=== PATIENT | male | born 1940 | race Two or more races ===

== ENCOUNTER → 2024-08-24 | Outpatient (CLI) | payer MEDICARE, SELFPAY ==
--- NOTE | 2024-08-24 12:30 | XR_ITS ---
Examination: Bone scan whole body, radioisotope Date and time of exam: August 24, 2024 at 1230 hours INDICATIONS: Diagnosis malignant skin lesions 2 years ago, staging Technique: Study has been performed with intravenous administration of 25.5 mci 99M technetium MDP. Anterior, posterior whole body images are obtained. Images have been obtained including the lower extremities. Findings: Increased isotope accumulation right maxilla Increased isotope accumulation T6 and T11 as well as S1 on the right IMPRESSION: Positive bone scan but nonspecific Recommend plain films thoracic lumbar spine, facial series AP pelvis follow-up
== END | disposition home or self-care (01) ==
LOC: SNUC 07:47
PROVIDERS: PCP Family Medicine; Referring Provider Family Medicine; Visit Provider Family Medicine
DX: R93.7 Abnormal findings on diagnostic imaging of other parts of musculoskeletal system (principal); C90.00 Multiple myeloma not having achieved remission
CPT/HCPCS: 78306; A9503

== ENCOUNTER → 2024-08-26 | Outpatient (CLI) | payer MEDICARE, SELFPAY ==
--- NOTE | 2024-08-26 10:11 | XR_ITS ---
Examination: Lumbar spine, 5 views Technique: Lumbar spine AP, lateral, coned lateral lower lumbar spine, bilateral obliques 5 views Exam date and time: August 26, 2024 1059 hours INDICATIONS: Diagnosis malignant skin lesion 2 years ago, nuclear medicine bone scan August 24, 2024 positive T6 T11 increased isotope accumulation FINDINGS: Significant osteopenia Advanced facet arthropathy Prominent lumbar spondylosis Diffuse advanced lumbar degenerative disc disease with grade 1-2 anterolisthesis L5 on S1 IMPRESSION: No findings of osseous metastatic disease
--- NOTE | 2024-08-26 10:11 | XR_ITS ---
Examination: Facial bones 4 views TECHNIQUE: Bryan Astorga lateral submentovertex facial series 4 views Exam date and time: August 26, 2024 1059 hours INDICATIONS: Diagnosis malignant skin lesions 2 years ago, positive nuclear medicine bone scan right maxilla FINDINGS: No area of cortical bone destruction No facial fracture Mild mucosal thickening in the frontal air cells IMPRESSION: No area of cortical bone destruction CT maxillofacial follow-up, however, would be preferable in assessing for cortical bone destruction right maxilla
--- NOTE | 2024-08-26 10:11 | XR_ITS ---
Examination: Ribs, right, with PA chest, 4 views Technique: Chest PA, RIBS AP, RPO, LPO, 4 views Exam date and time: August 26, 2024 1059 hours INDICATIONS: Diagnosis malignant skin lesion 2 years ago, positive nuclear medicine bone scan August 24, 2024 ribs Findings: Normal heart size Extensive bilateral pulmonary fibrosis Moderate osteopenia No osteolytic lesions involving the visualized ribs IMPRESSION: Severe bilateral pulmonary fibrosis
--- NOTE | 2024-08-26 10:11 | XR_ITS ---
Examination: AP pelvis 2 views TECHNIQUE: AP pelvis hips in neutral position, AP pelvis hips abduction position Exam date and time: 03/26/2024 1059 hours INDICATIONS: Diagnosis malignant skin lesions 2 years ago, positive nuclear medicine bone scan S1 on the right August 24, 2024 FINDINGS: Advanced degenerative disc disease L5-S1 No osteolytic or osteoblastic lesion depicted Moderate narrowing hip joints IMPRESSION: No osteolytic or osteoblastic lesion depicted
== END | disposition home or self-care (01) ==
PROVIDERS: PCP Family Medicine; Referring Provider Family Medicine; Visit Provider Family Medicine
DX: R94.8 Abnormal results of function studies of other organs and systems (principal); J84.10 Pulmonary fibrosis, unspecified
CPT/HCPCS: 70150; 71101; 72110; 72170

== ENCOUNTER → 2024-10-13 | Outpatient (CLI) | payer MEDICARE, SELFPAY ==
--- NOTE | 2024-10-13 11:00 | XR_ITS ---
Examination: PA lateral chest 2 views TECHNIQUE: Upright PA lateral chest 2 views Exam date and time: October 13, 2024 1255 hours Comparison August 26, 2024 INDICATIONS: Coughing congestion chronic FINDINGS: Severe bilateral pulmonary fibrosis Normal heart size Prominent osteopenia IMPRESSION: Severe bilateral pulmonary fibrosis
== END | disposition home or self-care (01) ==
PROVIDERS: PCP Family Medicine; Referring Provider Family Medicine; Visit Provider Family Medicine
DX: J84.10 Pulmonary fibrosis, unspecified (principal)
CPT/HCPCS: 71046

== ENCOUNTER → 2024-10-20 | Outpatient (CLI) | payer MEDICARE, SELFPAY ==
[2024-10-20 11:47] LABS: Basophils % (Auto) 1 % (0-2.5); Eosinophils # (Auto) 0.2 Thou/mm3 (0.0-0.5); Eosinophils % (Auto) 3 % (0-10); Hematocrit 42.6 % (41.0-53.0); Hemoglobin 14.4 g/dL (13.5-16.0); Immature Granulocytes % (Auto) 1 % (0-0); Immature Granulocytes Auto 0.04 Thou/mm3 (0.00-0.00); Lymphocytes # (Auto) 0.9 Thou/mm3 (1.0-4.8); Lymphocytes % (Auto) 14 % (10-50); Mean Corpuscular HGB Conc 33.8 g/dl (31.0-37.0); Mean Corpuscular Hemoglobin 32.8 pg (25.0-35.0); Mean Corpuscular Volume 97 fL (80-100); Monocytes # (Auto) 0.4 Thou/mm3 (0.0-0.8); Monocytes % (Auto) 6 % (0-12); Neutrophils % (Auto) 77 % (37-80); Nucleated Red Blood Cell % 0 /100 WBC (0); Platelet Count 283 Thou/mm3 (140-440); RDW Standard Deviation 53.6 fL (35.1-43.9); Red Blood Count 4.39 Miln/mm3 (4.50-5.90); White Blood Count 6.5 Thou/mm3 (3.8-10.6)
[2024-10-20 12:03] LABS: Sed Rate (ESR) 15 mm/hr (0-20)
[2024-10-20 12:17] LABS: Alanine Aminotransferase 7 U/L (10-49); Albumin, Serum 4.5 gm/dL (3.4-4.8); Albumin/Globulin Ratio 1.3 (1.2-2.2); Alkaline Phosphatase 87 U/L (46-116); Anion Gap 8 (7-16); Aspartate Amino Transferase 19 U/L (0-34); BUN/Creatinine Ratio 17 Ratio (12-20); Bilirubin,Total 0.6 mg/dL (0.3-1.2); Blood Urea Nitrogen 20 mg/dL (9-23); C-Reactive Protein 0.4 mg/dL (0.0-0.9); Calcium 9.6 mg/dL (8.3-10.6); Calcium (Corrected) 9.6 mg/dL (8.5-10.1); Carbon Dioxide 28.9 mMol/L (20.0-31.0); Chloride 103 mMol/L (98-107); Creatinine (Component) 1.2 mg/dL (0.6-1.3); Globulin 3.4 gm/dL (2.3-3.5); Glucose 141 mg/dL (74-106); Osmolality,Calculated 284 (275-295); Potassium 4.7 mMol/L (3.4-5.1); Sodium 140 mMol/L (136-145); Total Protein 7.9 gm/dL (5.7-8.2); eGFR > 60 See Note
== END | disposition home or self-care (01) ==
LOC: COPL 10:19
PROVIDERS: PCP Family Medicine; Referring Provider Physician Assistant; Visit Provider Physician Assistant
DX: M05.79 Rheumatoid arthritis with rheumatoid factor of multiple sites without organ or systems involvement (principal)
CPT/HCPCS: 36415; 80053; 85025; 85652; 86140

== ENCOUNTER 2024-11-10 13:03 | Outpatient (RCR) | payer MEDICARE, SELFPAY | END 2024-12-05 23:59 | disposition home or self-care (01) | LOC: SCTC 13:03 | PROVIDERS: PCP Family Medicine; Referring Provider Family Medicine; Visit Provider Nurse Practitioner Family | DX: R63.4 Abnormal weight loss (principal); R53.1 Weakness | CPT/HCPCS: 99213; G0463 ==

== ENCOUNTER → 2024-11-22 | Outpatient (CLI) | payer MEDICARE, SELFPAY ==
[2024-11-22 09:49] LABS: Basophils % (Auto) 1 % (0-2.5); Eosinophils # (Auto) 0.2 Thou/mm3 (0.0-0.5); Eosinophils % (Auto) 4 % (0-10); Hematocrit 38.9 % (41.0-53.0); Hemoglobin 13.3 g/dL (13.5-16.0); Immature Granulocytes % (Auto) 0 % (0-0); Immature Granulocytes Auto 0.01 Thou/mm3 (0.00-0.00); Immature Reticulocyte Fraction 11.8 % (2.3-13.4); Lymphocytes % (Auto) 15 % (10-50); Mean Corpuscular HGB Conc 34.2 g/dl (31.0-37.0); Mean Corpuscular Hemoglobin 32.9 pg (25.0-35.0); Mean Corpuscular Volume 96 fL (80-100); Monocytes # (Auto) 0.5 Thou/mm3 (0.0-0.8); Monocytes % (Auto) 7 % (0-12); Neutrophils # (Auto) 4.7 Thou/mm3 (1.8-7.7); Neutrophils % (Auto) 73 % (37-80); Nucleated Red Blood Cell % 0 /100 WBC (0); Platelet Count 251 Thou/mm3 (140-440); RDW Standard Deviation 51.2 fL (35.1-43.9); Red Blood Count 4.04 Miln/mm3 (4.50-5.90); Reticulocyte % (Auto) 1.3 % (0.5-1.5); Reticulocyte Absolute Auto 52.1 Biln/L (25.0-75.0); White Blood Count 6.3 Thou/mm3 (3.8-10.6)
[2024-11-22 10:06] LABS: Folate > 24.00 ng/mL (>5.38); Vitamin B12 270 pg/mL (211-911)
[2024-11-22 10:22] LABS: Alanine Aminotransferase < 7 U/L (10-49); Albumin, Serum 4.3 gm/dL (3.4-4.8); Albumin/Globulin Ratio 1.3 (1.2-2.2); Alkaline Phosphatase 76 U/L (46-116); Anion Gap 9 (7-16); Aspartate Amino Transferase 16 U/L (0-34); BUN/Creatinine Ratio 17 Ratio (12-20); Bilirubin,Total 0.4 mg/dL (0.3-1.2); Blood Urea Nitrogen 20 mg/dL (9-23); Calcium 9.4 mg/dL (8.3-10.6); Calcium (Corrected) 9.4 mg/dL (8.5-10.1); Carbon Dioxide 30.2 mMol/L (20.0-31.0); Chloride 100 mMol/L (98-107); Creatinine (Component) 1.2 mg/dL (0.6-1.3); Globulin 3.3 gm/dL (2.3-3.5); Glucose 128 mg/dL (74-106); Osmolality,Calculated 282 (275-295); Potassium 4.7 mMol/L (3.4-5.1); Sodium 139 mMol/L (136-145); Total Protein 7.6 gm/dL (5.7-8.2); eGFR > 60 See Note
[2024-11-29 08:52] LABS: Albumin 3.9 g/dL (3.8-4.8); Alpha-1-Globulin 0.3 g/dL (0.2-0.3); Alpha-2-Globulin 0.9 g/dL (0.5-0.9); Beta-1-Globulin 0.5 g/dL (0.4-0.6); Beta-2-globulin 0.6 g/dL (0.2-0.5); Gamma Globulin 1.7 g/dL (0.8-1.7); Immunoglobulin A 487 mg/dL (70-320); Immunoglobulin G 1865 mg/dL (600-1540); Kappa Light Chain, Free 96.2 mg/L (3.3-19.4)
[2024-11-30 07:21] LABS: Beta 2 Microglobulin 3.25 mg/L (< OR = 2.51); Immunoglobulin M 110 mg/dL (50-300); Kappa/Lambda, Free Ratio 2.19 (0.26-1.65); Protein, total, serum 7.8 g/dL (6.1-8.1)
== END | disposition home or self-care (01) ==
LOC: SCTO 08:33
PROVIDERS: PCP Family Medicine; Referring Provider Nurse Practitioner Family; Visit Provider Nurse Practitioner Family
DX: D61.818 Other pancytopenia (principal); L98.9 Disorder of the skin and subcutaneous tissue, unspecified
CPT/HCPCS: 36415; 80053; 82232; 82607; 82728; 82746; 82784; 83521; 83540; 83550; 84155; 84165; 85025; 85046; 86334

== ENCOUNTER 2024-12-14 13:46 | Outpatient (RCR) | payer MEDICARE, SELFPAY | END 2025-01-04 23:59 | disposition home or self-care (01) | LOC: SCTC 13:46 | PROVIDERS: PCP Family Medicine; Referring Provider Nurse Practitioner Family; Visit Provider Nurse Practitioner Family | DX: E53.8 Deficiency of other specified B group vitamins (principal); R76.8 Other specified abnormal immunological findings in serum; R53.1 Weakness; R63.4 Abnormal weight loss; Z68.25 Body mass index [BMI] 25.0-25.9, adult | CPT/HCPCS: 99212; G0463 ==

== ENCOUNTER → 2024-12-15 | Outpatient (CLI) | payer MEDICARE, SELFPAY ==
[2024-12-15 11:46] LABS: Flow Cytometry* See Sep Rpt; Misc Send Out* See Sep Rpt
[2024-12-15 12:24] LABS: Basophils % (Auto) 1 % (0-2.5); Eosinophils # (Auto) 0.2 Thou/mm3 (0.0-0.5); Eosinophils % (Auto) 3 % (0-10); Hematocrit 36.7 % (41.0-53.0); Hemoglobin 12.6 g/dL (13.5-16.0); Immature Granulocytes % (Auto) 0 % (0-0); Immature Granulocytes Auto 0.01 Thou/mm3 (0.00-0.00); Lymphocytes # (Auto) 0.7 Thou/mm3 (1.0-4.8); Lymphocytes % (Auto) 13 % (10-50); Mean Corpuscular HGB Conc 34.3 g/dl (31.0-37.0); Mean Corpuscular Hemoglobin 33.3 pg (25.0-35.0); Mean Corpuscular Volume 97 fL (80-100); Monocytes # (Auto) 0.4 Thou/mm3 (0.0-0.8); Monocytes % (Auto) 7 % (0-12); Neutrophils # (Auto) 4.3 Thou/mm3 (1.8-7.7); Neutrophils % (Auto) 76 % (37-80); Nucleated Red Blood Cell % 0 /100 WBC (0); Platelet Count 272 Thou/mm3 (140-440); RDW Standard Deviation 51.7 fL (35.1-43.9); Red Blood Count 3.78 Miln/mm3 (4.50-5.90); White Blood Count 5.7 Thou/mm3 (3.8-10.6)
[2024-12-15 12:36] LABS: Ferritin 37 ng/mL (10.5-307.3); Iron 42 mcg/dL (65-175)
[2024-12-15 12:45] LABS: Alanine Aminotransferase < 7 U/L (10-49); Albumin/Globulin Ratio 1.2 (1.2-2.2); Alkaline Phosphatase 76 U/L (46-116); Anion Gap 7 (7-16); Aspartate Amino Transferase 18 U/L (0-34); BUN/Creatinine Ratio 12 Ratio (12-20); Bilirubin,Total 0.5 mg/dL (0.3-1.2); Blood Urea Nitrogen 13 mg/dL (9-23); Calcium 8.6 mg/dL (8.3-10.6); Calcium (Corrected) 8.6 mg/dL (8.5-10.1); Carbon Dioxide 27.7 mMol/L (20.0-31.0); Chloride 104 mMol/L (98-107); Creatinine (Component) 1.1 mg/dL (0.6-1.3); Globulin 3.3 gm/dL (2.3-3.5); Glucose 173 mg/dL (74-106); LDH (Lactate Dehydrogenase) 197 U/L (120-246); Osmolality,Calculated 281 (275-295); Potassium 4.4 mMol/L (3.4-5.1); Sodium 139 mMol/L (136-145); Total Protein 7.3 gm/dL (5.7-8.2); eGFR > 60 See Note
[2024-12-15 13:24] LABS: Hepatitis A Antibody IgM Non Reactive (Non React); Hepatitis B Core Antibody IgM Non Reactive (Non React); Hepatitis B Surface Antigen Non Reactive (Non React); Hepatitis C Antibody Non Reactive (Non React)
[2024-12-15 14:35] LABS: HIV (1&2) Antibody Rapid Non-Reactive
== END | disposition home or self-care (01) ==
LOC: SCTO 11:09
PROVIDERS: PCP Family Medicine; Referring Provider Nurse Practitioner Family; Visit Provider Nurse Practitioner Family
DX: D61.818 Other pancytopenia (principal); L98.9 Disorder of the skin and subcutaneous tissue, unspecified
CPT/HCPCS: 36415; 80053; 80074; 82728; 83010; 83540; 83615; 85025; 86703

== ENCOUNTER 2025-01-12 07:38 | Outpatient (CLI) | payer MEDICARE, SELFPAY ==
[2025-01-10 16:48] VITALS: BMI 23.8
[2025-01-11 08:43] LABS: Basophils % (Auto) 0 % (0-2.5); Eosinophils # (Auto) 0.2 Thou/mm3 (0.0-0.5); Eosinophils % (Auto) 4 % (0-10); Hematocrit 36.5 % (41.0-53.0); Hemoglobin 12.6 g/dL (13.5-16.0); Immature Granulocytes % (Auto) 0 % (0-0); Immature Granulocytes Auto 0.02 Thou/mm3 (0.00-0.00); Lymphocytes # (Auto) 0.9 Thou/mm3 (1.0-4.8); Lymphocytes % (Auto) 14 % (10-50); Mean Corpuscular HGB Conc 34.5 g/dl (31.0-37.0); Mean Corpuscular Hemoglobin 33.7 pg (25.0-35.0); Mean Corpuscular Volume 98 fL (80-100); Monocytes # (Auto) 0.4 Thou/mm3 (0.0-0.8); Monocytes % (Auto) 6 % (0-12); Neutrophils # (Auto) 4.7 Thou/mm3 (1.8-7.7); Neutrophils % (Auto) 76 % (37-80); Nucleated Red Blood Cell % 0 /100 WBC (0); Platelet Count 254 Thou/mm3 (140-440); RDW Standard Deviation 51.2 fL (35.1-43.9); Red Blood Count 3.74 Miln/mm3 (4.50-5.90); White Blood Count 6.2 Thou/mm3 (3.8-10.6)
[2025-01-11 10:04] LABS: Partial Thromboplastin Time 27.6 Seconds (22.0-36.0)
[2025-01-12] VITALS (8 sets, daily range): BP systolic 144–183; BP diastolic 70–94; PULSE 72–83; RESP 12–19; TEMP 36.3–36.8; O2SAT 96–100
--- NOTE | 2025-01-12 08:30 | XR_ITS ---
Examination: CT-guided percutaneous bone marrow aspiration left posterior superior iliac crest CT-guided percutaneous bone biopsy deep left posterior superior iliac crest Exam date and time: January 2025 0952 hours INDICATIONS: Diagnosis pancytopenia Informed consent provided. A timeout was completed verifying correct patient, procedure, site and positioning. Technique: Axial 3 mm sections were obtained for localization of the left posterior superior iliac crest Appropriate area is marked. The patient's site was prepped and draped in sterile fashion Maximal sterile barrier technique utilized, including hand hygiene Local anesthesia was obtained with 1% lidocaine. Low dose protocols were performed. One or more of the following dose reduction techniques were used; automated exposure control, adjustment of the mA and/or KV according to patient size, use of iterative reconstruction technique. Utilizing CT fluoroscopic guidance 14-gauge bone biopsy needle placed in the left posterior superior iliac crest 10 cc marrow aspirate obtained 5 cm bone core obtained Patient appears in stable condition during this procedure. At completion of the procedure, the patient is in satisfactory condition. Estimated blood loss 2 cc Complete pathology report to follow. Impression: Successful CT-guided percutaneous bone marrow aspiration left posterior superior iliac crest Successful CT-guided percutaneous bone biopsy deep left posterior superior iliac crest
[2025-01-12] MEDS: SODIUM CHLORIDE 0.9% 500 ML 500 ML 20 ML IV (09:33)
[2025-01-12 09:44] LABS: Flow Cytometry* See Sep Rpt
[2025-01-12] MEDS: fentaNYL CIT INJ 50 mCg/ML AMP 2ML 75 MCG IVP (09:47)
--- NOTE | 2025-01-12 11:11 | PC.NURSE ---
1005 patient is awake, alert, breathing unlabored, s/p bone marrow biopsy and aspiration, band aid and tegaderm to lower back dry with no bleeding, report received from Ziggy ENG, patient to recover for 1hr. 1105 patient is awake alert, breathing unlabored, able to tolerate fluids by mouth with no nausea or vomiting,able to ambulate to bathroom and void, meets discharge criteria, discharge instructions given by Светлана Charge nurse to patient and patrick, patient discharged home in wheelchair with all belongings.
== END 2025-01-12 11:05 | disposition home or self-care (01) ==
PROVIDERS: Radiology Diagnostic Radiology; PCP Family Medicine; Referring Provider Nurse Practitioner Family; Visit Provider Nurse Practitioner Family
DX: D61.818 Other pancytopenia (principal); L98.9 Disorder of the skin and subcutaneous tissue, unspecified; Z01.812 Encounter for preprocedural laboratory examination
CPT/HCPCS: 38221; 36415; 77012; 85025; 85610; 85730; J3010; J7040

== ENCOUNTER → 2025-01-20 | Outpatient (CLI) | payer MEDICARE, SELFPAY | END | disposition home or self-care (01) | PROVIDERS: PCP Family Medicine; Referring Provider Family Medicine; Visit Provider Family Medicine | DX: L03.115 Cellulitis of right lower limb (principal) | CPT/HCPCS: 87070; 87077; 87186; 87205 ==

== ENCOUNTER → 2025-01-23 | Outpatient (CLI) | payer MEDICARE, SELFPAY ==
--- NOTE | 2025-01-23 14:30 | XR_ITS ---
Examination: CT chest with intravenous contrast CT abdomen with intravenous contrast CT pelvis with intravenous contrast 2-D coronal and sagittal reconstructions Time of exam: January 23, 2025 1550 hours Comparison 05/29 2022 INDICATIONS: Diagnosis pancytopenia, 45 pound weight loss in the last 3 years CTDI: vol (mGy) : 6.03 DLP: (mGycm): 447 Technique: Multiple axial images of the chest, abdomen and pelvis with intravenous contrast, 3.0 mm slice thickness. Images obtained post intravenous injection Isovue 370 60 cc. 2-D sagittal and coronal reconstructions. Low dose protocols were performed. One or more of the following dose reduction techniques were used; automated exposure control, adjustment of the mA and/or KV according to patient size, use of iterative reconstruction technique. Findings: No thoracic aortic aneurysm dilatation Pulmonary artery opacification is poor No pathologic mediastinal lymphadenopathy Severe COPD pattern with multiple areas of bronchiectasis throughout both lungs, stable pulmonary fibrosis No pneumonia or pulmonary edema Again noted intrahepatic biliary tract dilatation, absent gallbladder Common bile duct 4 mm, dilated pancreatic duct 5 mm noted on the prior study No pancreatic mass No adrenal mass Aorta normal size No unremarkable abdominal or pelvic lymphadenopathy No hydronephrosis No pericecal inflammatory change Negative for diverticulitis Posterior urinary bladder wall diverticulum, 3.7 cm Significant osteopenia with grade 1 spondylolisthesis L5 on S1 IMPRESSION: COPD, bronchiectasis, stable pulmonary fibrosis compared with 05/29 2022 No mediastinal lymphadenopathy Stable dilatation of the pancreatic duct, 5 mm, no pancreatic mass No interval abdominal or pelvic lymphadenopathy Benign-appearing posterior bladder diverticulum
[2025-01-23 14:41] LABS: Basophils % (Auto) 1 % (0-2.5); Eosinophils # (Auto) 0.2 Thou/mm3 (0.0-0.5); Eosinophils % (Auto) 3 % (0-10); Hematocrit 39.3 % (41.0-53.0); Hemoglobin 13.7 g/dL (13.5-16.0); Immature Granulocytes % (Auto) 0 % (0-0); Immature Granulocytes Auto 0.02 Thou/mm3 (0.00-0.00); Lymphocytes % (Auto) 15 % (10-50); Mean Corpuscular HGB Conc 34.9 g/dl (31.0-37.0); Mean Corpuscular Hemoglobin 33.1 pg (25.0-35.0); Mean Corpuscular Volume 95 fL (80-100); Monocytes # (Auto) 0.5 Thou/mm3 (0.0-0.8); Monocytes % (Auto) 8 % (0-12); Neutrophils % (Auto) 74 % (37-80); Nucleated Red Blood Cell % 0 /100 WBC (0); Platelet Count 276 Thou/mm3 (140-440); RDW Standard Deviation 49.3 fL (35.1-43.9); Red Blood Count 4.14 Miln/mm3 (4.50-5.90); White Blood Count 6.7 Thou/mm3 (3.8-10.6)
[2025-01-23 15:30] LABS: Alanine Aminotransferase < 7 U/L (10-49); Albumin, Serum 4.4 gm/dL (3.4-4.8); Albumin/Globulin Ratio 1.1 (1.2-2.2); Alkaline Phosphatase 83 U/L (46-116); Anion Gap 7 (7-16); Aspartate Amino Transferase 17 U/L (0-34); BUN/Creatinine Ratio 14 Ratio (12-20); Bilirubin,Total 0.5 mg/dL (0.3-1.2); Blood Urea Nitrogen 15 mg/dL (9-23); Calcium 8.7 mg/dL (8.3-10.6); Calcium (Corrected) 8.7 mg/dL (8.5-10.1); Carbon Dioxide 30.1 mMol/L (20.0-31.0); Chloride 100 mMol/L (98-107); Creatinine (Component) 1.1 mg/dL (0.6-1.3); Globulin 3.9 gm/dL (2.3-3.5); Glucose 116 mg/dL (74-106); Osmolality,Calculated 275 (275-295); Potassium 4.7 mMol/L (3.4-5.1); Sodium 137 mMol/L (136-145); Total Protein 8.3 gm/dL (5.7-8.2); eGFR > 60 See Note
== END | disposition home or self-care (01) ==
LOC: CCTX 13:56
PROVIDERS: PCP Family Medicine; Referring Provider Nurse Practitioner Family; Visit Provider Nurse Practitioner Family
DX: J44.9 Chronic obstructive pulmonary disease, unspecified (principal); J47.9 Bronchiectasis, uncomplicated; J84.10 Pulmonary fibrosis, unspecified; N32.3 Diverticulum of bladder; D61.818 Other pancytopenia
CPT/HCPCS: 36415; 71260; 74177; 80053; 85025; A4649; Q9967

== ENCOUNTER → 2025-01-26 | Outpatient (CLI) | payer MEDICARE, SELFPAY ==
--- NOTE | 2025-01-26 08:52 | XR_ITS ---
EXAMINATION: PET/CT FUSION SKULL TO THIGH EXAM DATE AND TIME: January 26, 2025 1019 hours Comparison chest abdomen pelvis January 23, 2025 INDICATIONS: Diagnosis pancytopenia CTDI:vol (mGy) 4.14 DLP: (mGycm) 378 PROCEDURE: 16.7 mCi FDG was administered intravenously To allow for distribution and uptake of radiotracer, the patient was allowed to rest quietly in a shielded room. Imaging was performed on an integrated 16-slice PET/CT scanner, with scanning from the skull base to the mid thigh. Serum blood glucose at the time of the injection was measured 135 mg/dL. CT scanning was performed without oral or intravenous contrast material. FINDINGS: Head and Neck: There is no siena hypermetabolism in the neck. The visualized portions of the brain are normal in appearance on CT. Chest: There is no siena hypermetabolism in the chest. Pulmonary fibrosis, severe Abdomen and Pelvis: There is no siena hypermetabolism in retroperitoneal or pelvic chains. The spleen is normal in size and FDG avidity. Musculoskeletal: Marrow uptake is within normal range. IMPRESSION: Severe pulmonary fibrosis No hypermetabolic abdominal or pelvic lymphadenopathy
== END | disposition home or self-care (01) ==
PROVIDERS: PCP Family Medicine; Referring Provider Nurse Practitioner Family; Visit Provider Nurse Practitioner Family
DX: J84.10 Pulmonary fibrosis, unspecified (principal)
CPT/HCPCS: 78815; A9552

== ENCOUNTER 2025-02-03 07:30 | Outpatient (RCR) | payer MEDICARE, SELFPAY | END 2025-02-04 23:59 | disposition home or self-care (01) | LOC: SCTC 07:30 | PROVIDERS: PCP Family Medicine; Referring Provider Family Medicine; Visit Provider Nurse Practitioner Family | DX: E53.8 Deficiency of other specified B group vitamins (principal); R63.4 Abnormal weight loss; Z68.24 Body mass index [BMI] 24.0-24.9, adult | CPT/HCPCS: 96372; 99212; J3420; G0463 ==

== ENCOUNTER → 2025-02-06 | Outpatient (CLI) | payer MEDICARE, SELFPAY ==
[2025-02-06 14:56] LABS: Basophils % (Auto) 1 % (0-2.5); Eosinophils # (Auto) 0.2 Thou/mm3 (0.0-0.5); Eosinophils % (Auto) 3 % (0-10); Hemoglobin 12.9 g/dL (13.5-16.0); Immature Granulocytes % (Auto) 0 % (0-0); Immature Granulocytes Auto 0.02 Thou/mm3 (0.00-0.00); Lymphocytes # (Auto) 0.8 Thou/mm3 (1.0-4.8); Lymphocytes % (Auto) 14 % (10-50); Mean Corpuscular HGB Conc 35.8 g/dl (31.0-37.0); Mean Corpuscular Hemoglobin 33.3 pg (25.0-35.0); Mean Corpuscular Volume 93 fL (80-100); Monocytes # (Auto) 0.4 Thou/mm3 (0.0-0.8); Monocytes % (Auto) 6 % (0-12); Neutrophils # (Auto) 4.6 Thou/mm3 (1.8-7.7); Neutrophils % (Auto) 76 % (37-80); Nucleated Red Blood Cell % 0 /100 WBC (0); Platelet Count 141 Thou/mm3 (140-440); Red Blood Count 3.87 Miln/mm3 (4.50-5.90)
[2025-02-06 15:07] LABS: Alanine Aminotransferase < 7 U/L (10-49); Albumin, Serum 4.3 gm/dL (3.4-4.8); Albumin/Globulin Ratio 1.3 (1.2-2.2); Alkaline Phosphatase 80 U/L (46-116); Anion Gap 11 (7-16); Aspartate Amino Transferase 22 U/L (0-34); BUN/Creatinine Ratio 10 Ratio (12-20); Bilirubin,Total 0.5 mg/dL (0.3-1.2); Blood Urea Nitrogen 11 mg/dL (9-23); C-Reactive Protein 0.8 mg/dL (0.0-0.9); Calcium 8.3 mg/dL (8.3-10.6); Calcium (Corrected) 8.3 mg/dL (8.5-10.1); Carbon Dioxide 24.3 mMol/L (20.0-31.0); Chloride 101 mMol/L (98-107); Creatinine (Component) 1.1 mg/dL (0.6-1.3); Globulin 3.4 gm/dL (2.3-3.5); Glucose 149 mg/dL (74-106); Osmolality,Calculated 274 (275-295); Potassium 4.8 mMol/L (3.4-5.1); Sodium 136 mMol/L (136-145); Total Protein 7.7 gm/dL (5.7-8.2); eGFR > 60 See Note
[2025-02-06 15:21] LABS: Sed Rate (ESR) 91 mm/hr (0-20)
== END | disposition home or self-care (01) ==
LOC: COPL 13:01
PROVIDERS: PCP Family Medicine; Referring Provider Internal Medicine Rheumatology; Visit Provider Internal Medicine Rheumatology
DX: M05.79 Rheumatoid arthritis with rheumatoid factor of multiple sites without organ or systems involvement (principal)
CPT/HCPCS: 36415; 80053; 85025; 85652; 86140

== ENCOUNTER 2025-02-24 09:10 | Day surgery (SDC) | payer MEDICARE, SELFPAY ==
[2025-02-23 12:51] VITALS: BMI 24.6
[2025-02-24] VITALS (14 sets, daily range): BP systolic 125–194; BP diastolic 69–101; PULSE 75–100; RESP 15–25; TEMP 36.5–36.9; O2SAT 91–100; BMI 23.6
[2025-02-24] MEDS: SODIUM CHLORIDE 0.9% 500 ML 500 ML 20 ML IV (11:08)
[2025-02-24] MEDS: BENZOCAINE 20% (Hurricaine) SPRAY 1 DOSE TOP (11:08)
[2025-02-24] MEDS: DiphenhydrAMINE INJ 50 MG/ML VIAL 25 MG IVP (11:08)
[2025-02-24] MEDS: MIDAZOLAM INJ 1 MG/ML VIAL 2 ML (ASD USE ONLY) 2 MG IVP (11:29)
[2025-02-24] MEDS: fentaNYL CIT INJ 50 mCg/ML AMP 2ML (ASD USE ONLY) IVP (11:29)
== END 2025-02-24 12:44 | disposition home or self-care (01) ==
PROVIDERS: PCP Nurse Practitioner Family; Referring Provider Specialist; Visit Provider Specialist
PROC: 0DBE8ZX Excision of Large Intestine, Via Natural or Artificial Opening Endoscopic, Diagnostic (ICD-10-PCS; CPT 45380; principal; 2025-02-24 10:15)
PROC: (CPT 43239; 2025-02-24 10:15)
DX: K64.9 Unspecified hemorrhoids (principal); K57.30 Diverticulosis of large intestine without perforation or abscess without bleeding
CPT/HCPCS: 45378; J1200; J2250; J3010; J7040; A9270

== ENCOUNTER 2025-03-02 13:06 | Outpatient (RCR) | payer MEDICARE, SELFPAY | END 2025-03-06 23:59 | disposition home or self-care (01) | LOC: SCTC 13:06 | PROVIDERS: PCP Family Medicine; Referring Provider Family Medicine; Visit Provider Nurse Practitioner Family | DX: E53.8 Deficiency of other specified B group vitamins (principal); R53.83 Other fatigue; R63.4 Abnormal weight loss; R53.1 Weakness; R77.8 Other specified abnormalities of plasma proteins | CPT/HCPCS: 96372; 99212; J3420; G0463 ==

== ENCOUNTER 2025-03-15 13:12 | Outpatient (RCR) | payer MEDICARE, SELFPAY | END 2025-04-06 23:59 | disposition home or self-care (01) | LOC: SCTC 13:12 | PROVIDERS: PCP Family Medicine; Referring Provider Family Medicine; Visit Provider Internal Medicine Hematology & Oncology | DX: E53.8 Deficiency of other specified B group vitamins (principal) | CPT/HCPCS: 96372; J3420 ==

== ENCOUNTER → 2025-03-24 | Outpatient (CLI) | payer MEDICARE, SELFPAY ==
--- NOTE | 2025-03-24 08:07 | XR_ITS ---
Examination: Foot, right, 3 views Technique: AP, oblique, lateral views foot, 3 views Date and time of exam: March 24, 2025 0813 hours INDICATIONS: Palpable lump on the lateral side of the foot 2 months FINDINGS: Prominent bony base of the fifth metatarsal No foreign body No fracture Moderate osteoarthritis first metatarsophalangeal joint 14 mm plantar bony calcaneal spur IMPRESSION: Prominent bony base of the fifth metatarsal
== END | disposition home or self-care (01) ==
LOC: CDIM 07:57
PROVIDERS: PCP Family Medicine; Referring Provider Family Medicine; Visit Provider Family Medicine
DX: M25.871 Other specified joint disorders, right ankle and foot (principal)
CPT/HCPCS: 73630

== ENCOUNTER 2025-04-12 12:51 | Outpatient (RCR) | payer MEDICARE, SELFPAY | END 2025-05-07 23:59 | disposition home or self-care (01) | LOC: SCTC 12:51 | PROVIDERS: PCP Family Medicine; Referring Provider Family Medicine; Visit Provider Internal Medicine Hematology & Oncology | DX: E53.8 Deficiency of other specified B group vitamins (principal); D89.2 Hypergammaglobulinemia, unspecified; J84.10 Pulmonary fibrosis, unspecified; K64.9 Unspecified hemorrhoids; K57.90 Diverticulosis of intestine, part unspecified, without perforation or abscess without bleeding; K20.90 Esophagitis, unspecified without bleeding | CPT/HCPCS: 96372; J3420 ==

== ENCOUNTER 2025-05-10 11:05 | Outpatient (RCR) | payer MEDICARE, SELFPAY | END 2025-06-06 23:59 | disposition home or self-care (01) | LOC: SCTC 11:05 | PROVIDERS: PCP Family Medicine; Referring Provider Family Medicine; Visit Provider Internal Medicine Hematology & Oncology | DX: E53.8 Deficiency of other specified B group vitamins (principal) | CPT/HCPCS: 96372; J3420 ==

== ENCOUNTER → 2025-05-10 | Outpatient (CLI) | payer MEDICARE, SELFPAY ==
[2025-05-10 10:28] LABS: Basophils # (Auto) 0.0 Thou/mm3 (0.0-0.2); Basophils % (Auto) 1 % (0-2.5); Eosinophils # (Auto) 0.3 Thou/mm3 (0.0-0.5); Eosinophils % (Auto) 6 % (0-10); Hematocrit 38.4 % (41.0-53.0); Hemoglobin 13.2 g/dL (13.5-16.0); Immature Granulocytes Auto 0.03 Thou/mm3 (0.00-0.00); Lymphocytes # (Auto) 0.8 Thou/mm3 (1.0-4.8); Lymphocytes % (Auto) 14 % (10-50); Mean Corpuscular HGB Conc 34.4 g/dl (31.0-37.0); Mean Corpuscular Hemoglobin 34.0 pg (25.0-35.0); Mean Corpuscular Volume 99 fL (80-100); Monocytes # (Auto) 0.4 Thou/mm3 (0.0-0.8); Monocytes % (Auto) 8 % (0-12); Neutrophils # (Auto) 4.0 Thou/mm3 (1.8-7.7); Neutrophils % (Auto) 72 % (37-80); Nucleated Red Blood Cell # 0.00 Thou/mm3 (0.00-0.00); Nucleated Red Blood Cell % 0 /100 WBC (0); Platelet Count 298 Thou/mm3 (140-440); RDW Standard Deviation 54.7 fL (35.1-43.9); Red Blood Count 3.88 Miln/mm3 (4.50-5.90); White Blood Count 5.6 Thou/mm3 (3.8-10.6)
[2025-05-10 10:47] LABS: Sed Rate (ESR) 29 mm/hr (0-20)
[2025-05-10 11:09] LABS: Alanine Aminotransferase < 7 U/L (10-49); Albumin, Serum 4.2 gm/dL (3.4-4.8); Albumin/Globulin Ratio 1.3 (1.2-2.2); Alkaline Phosphatase 81 U/L (46-116); Anion Gap 11 (7-16); Aspartate Amino Transferase 10 U/L (0-34); BUN/Creatinine Ratio 9 Ratio (12-20); Bilirubin,Total 0.6 mg/dL (0.3-1.2); Blood Urea Nitrogen 11 mg/dL (9-23); C-Reactive Protein 5.3 mg/dL (0.0-0.9); Calcium 9.6 mg/dL (8.3-10.6); Calcium (Corrected) 9.6 mg/dL (8.5-10.1); Carbon Dioxide 27.6 mMol/L (20.0-31.0); Chloride 100 mMol/L (98-107); Creatinine (Component) 1.2 mg/dL (0.6-1.3); Globulin 3.3 gm/dL (2.3-3.5); Glucose 171 mg/dL (74-106); Osmolality,Calculated 280 (275-295); Potassium 5.0 mMol/L (3.4-5.1); Sodium 139 mMol/L (136-145); Total Protein 7.5 gm/dL (5.7-8.2); eGFR > 60 See Note
== END | disposition home or self-care (01) ==
LOC: CDIM 09:30 → COPL 09:33
PROVIDERS: PCP Family Medicine; Referring Provider Physician Assistant; Visit Provider Physician Assistant
DX: M05.79 Rheumatoid arthritis with rheumatoid factor of multiple sites without organ or systems involvement (principal)
CPT/HCPCS: 36415; 80053; 85025; 85652; 86140

== ENCOUNTER → 2025-06-20 | Outpatient (CLI) | payer MEDICARE, SELFPAY ==
[2025-06-20 08:33] LABS: Basophils # (Auto) 0.0 Thou/mm3 (0.0-0.2); Basophils % (Auto) 1 % (0-2.5); Eosinophils # (Auto) 0.2 Thou/mm3 (0.0-0.5); Eosinophils % (Auto) 5 % (0-10); Hematocrit 40.3 % (41.0-53.0); Hemoglobin 13.6 g/dL (13.5-16.0); Immature Granulocytes Auto 0.01 Thou/mm3 (0.00-0.00); Lymphocytes # (Auto) 0.9 Thou/mm3 (1.0-4.8); Lymphocytes % (Auto) 19 % (10-50); Mean Corpuscular HGB Conc 33.7 g/dl (31.0-37.0); Mean Corpuscular Hemoglobin 33.4 pg (25.0-35.0); Mean Corpuscular Volume 99 fL (80-100); Monocytes # (Auto) 0.4 Thou/mm3 (0.0-0.8); Monocytes % (Auto) 7 % (0-12); Neutrophils # (Auto) 3.3 Thou/mm3 (1.8-7.7); Neutrophils % (Auto) 68 % (37-80); Nucleated Red Blood Cell # 0.00 Thou/mm3 (0.00-0.00); Nucleated Red Blood Cell % 0 /100 WBC (0); Platelet Count 287 Thou/mm3 (140-440); RDW Standard Deviation 55.3 fL (35.1-43.9); Red Blood Count 4.07 Miln/mm3 (4.50-5.90); White Blood Count 4.9 Thou/mm3 (3.8-10.6)
[2025-06-20 08:42] LABS: Glucose Estimated Average 120 mg/dL (80-131); Hemoglobin A1C 5.8 % Hgb (4.8-6.0)
[2025-06-20 08:50] LABS: B-Type Natriuretic Peptide 24 pg/mL (0-100)
[2025-06-20 11:06] LABS: Alanine Aminotransferase < 7 U/L (10-49); Albumin, Serum 4.6 gm/dL (3.4-4.8); Alkaline Phosphatase 81 U/L (46-116); Anion Gap 11 (7-16); Aspartate Amino Transferase 16 U/L (0-34); BUN/Creatinine Ratio 9 Ratio (12-20); Bilirubin,Direct 0.2 mg/dL (0.0-0.3); Bilirubin,Total 0.6 mg/dL (0.3-1.2); Blood Urea Nitrogen 11 mg/dL (9-23); Calcium 9.6 mg/dL (8.3-10.6); Carbon Dioxide 27.8 mMol/L (20.0-31.0); Cardiac Risk Estimate 2.7 RATIO (4.0-6.7); Chloride 100 mMol/L (98-107); Cholesterol 112 mg/dL (132-200); Creatinine (Component) 1.2 mg/dL (0.6-1.3); Free T4 (Free Thyroxine) 1.56 ng/dL (0.89-1.76); Glucose 124 mg/dL (74-106); HDL Cholesterol 41 mg/dL (40-60); LDL Cholesterol,Calculated 50 mg/dL (0-130); Osmolality,Calculated 277 (275-295); Potassium 5.0 mMol/L (3.4-5.1); Sodium 139 mMol/L (136-145); Thyroid Stimulating Hormone 3.59 uIU/mL (0.55-4.78); Total Protein 8.5 gm/dL (5.7-8.2); Triglycerides 103 mg/dL (30-150); eGFR > 60 See Note
== END | disposition home or self-care (01) ==
LOC: COPL 07:58
PROVIDERS: PCP Family Medicine; Referring Provider Internal Medicine Cardiovascular Disease; Visit Provider Internal Medicine Cardiovascular Disease
DX: I11.0 Hypertensive heart disease with heart failure (principal); I50.9 Heart failure, unspecified; E78.2 Mixed hyperlipidemia; E13.9 Other specified diabetes mellitus without complications
CPT/HCPCS: 36415; 80048; 80061; 80076; 83036; 83880; 84439; 84443; 85025

== ENCOUNTER 2025-07-05 09:29 | Outpatient (RCR) | payer MEDICARE, SELFPAY ==
--- NOTE | 2025-07-03 01:49 | CTCFLWUP_ITS ---
Patient: MARISOL HUERTA : 1940 Page 2 of 4 FOLLOW UP NOTE DATE OF SERVICE: 06/22/2025 NAME: MARISOL HUERTA ACCOUNT: [id number] : 1940 AGE: 85 INTERVAL HISTORY: Marisol Huerta presents for follow-up. Patient was referred to us for pancytopenia. All the workup was done and did not reveal any underlying cause. Patient's PET CT scan revealed severe pulmonary fibrosis. Patient has severe COPD bronchiectasis but no other masses noted. Patient was also found to have B12 deficiency and has been on B12 supplement. ONCOLOGY HISTORY: DIAGNOSIS: PANCYTOPENIA [ICD9] 284.1* TREATMENT HISTORY: Care?Plan Start?Date Cycle Day Intent B?12?initial 01/20/2025 1 28 Palliative HISTORY OF PRESENT ILLNESS: 08/11/2013 patient had bone marrow biopsy done which showed 3.7% plasma cells with polyclonal distribution. Immunofixation of peripheral blood reportedly showed trace concentration band migrating in the gamma region with too low a concentration to definitely identified. 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 Since then he is being followed in this clinic with [facility]. Since then he is being followed in this clinic with regular labs. He was never again found to have elevated monoclonal proteins. 05/31/2018. He had labs drawn again. His globulin levels are elevated at 4.1. Upper limit of normal is 3.5. 06/29/2018:. Patient had various labs drawn since the last visit on 06/08/2018. His serum protein electrophoresis did not show hyperglobulinemia. Normal electrophoretic pattern was noted. Serum immunofixation electrophoresis showed a slightly elevated serum IgG levels. IgG was 1703. Upper limit of normal is 1618. It also revealed 1 trace concentration band migrating in the gamma region which was too low a concentration to definitely identified. Patient is otherwise doing very well. He denies any new complaints. Denies any weakness fatigue cough chest pain shortness of breath abdominal pain or leg cramps. 07/19/2019: Serum IgG is 1661 (700?1600). 02/02/2020 serum immunofixation electrophoresis did not show any evidence of monoclonal protein. 10/20/2024 show hemoglobin 14.4, MCV 97, platelets 283,000, ANC 5.0, WBC 6.5, creatinine 1.2, eGFR >60, calcium 9.4 11/22/2024 show hemoglobin 13.3, MCV 96, ANC 4.7, WBC 6.3, creatinine 1.2, EGFR>60, calcium 9.4. 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 01/26/[address] scan showed severe pulmonary fibrosis no hypermetabolic abdominal or pelvic lymphadenopathy OTHER MEDICAL HISTORY/CONDITIONS: HTN Diabetes Hyperlipidemia Appendectomy - as child Varicose vein stripping - 2006 Cholecystectomy ? 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 Rich and following up with dispensing and measuring optician Dr. Barragan, uses home oxygen for pulmonary fibrosis FAMILY HISTORY: Patient?denies?family?cancer?history. 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 Tobacco?Use:?Denies ETOH?Use:?Denies Drug?Note:?Denies Social?History?Note:?Lives?with? MEDICATIONS: 1. amlodipine - 10 mg Daily 2. azaTHIOprine - 50 mg 50 mg Daily 3. azithromycin - 250 mg 1 tab Daily 4. Claritin - 10 mg 1 tab Daily 5. ferrous sulfate - 325 mg (65 mg iron) 1 tab Twice a Day 6. garlic - 500 mg 1 tab Daily 7. Januvia - 100 mg 1 tab Daily 8. metformin - 1,000 mg Twice a Day 9. omeprazole - 40 mg 1 Capsule Daily 10. simvastatin - 40 mg 1 tab Daily 11. valsartan - 80 mg 1 tab Daily 12. vitamin B complex - 1 Capsule Daily Medications Last Reconciled by Yaneli Silver MD on 06/22/2025 ALLERGIES: codeine sulfate; hydrocodone-acetaminophen REVIEW OF SYSTEMS: A complete 14-point review of systems was performed and is negative except as noted in interval history. PHYSICAL EXAMINATION: VITAL SIGNS: Temperature?96.9, B/P?170/74, Oxygen?Saturation?96% Weight?142?lbs (Change?since?06/07/25:?0.2?lbs) PAIN: 0 - No pain ECOG Performance Status: 2 - Symptomatic; ambulatory; capable of self-care; >50% of waking hrs. not in bed GENERAL APPEARANCE: Thin, in no apparent distress, appropriately interactive. HEENT: Normocephalic, no temporal wasting, normal conjunctiva, no scleral icterus, normal hearing, lips without lesions, neck normal range of motion. CARDIOVASCULAR: Normal heart sounds. PULMONARY: Normal respiratory effort, no respiratory distress or use of accessory muscles, speaking in full sentences, no tachypnea. EXTREMITIES: No pedal edema or cyanosis. SKIN: Normal skin appearance. NEUROLOGIC: Alert and oriented x4. PSHYCHIATRIC: Appropriate affect, mood normal, behavior normal, intact thought and speech. LABORATORY DATA: I have personally reviewed and interpreted each of the patient?s relevant lab tests, abnormal findings are below: Date 05/10/25 06/20/25 ??WHITE?BLOOD?COUNT?(Thou/mm3) ? 4.9 ??RED?BLOOD?COUNT?(Miln/mm3) ? 4.07?L ??HEMOGLOBIN?(gm/dl) ? 13.6 ??HEMATOCRIT?(%) ? 40.3?L ??PLATELET?COUNT?(Thou/mm3) ? 287 ??NEUTROPHILS?%,?AUTO?(%) ? 68 ??LYMPH?%,?AUTO?(%) ? 19 ??NEUTROPHILS,?AUTO?(Thou/mm3) ? 3.3 ??GLUCOSE,RANDOM?(mg/dL) 171?H 124?H ??BLOOD?UREA?NITROGEN?(mg/dL) 11 11 ??CREATININE?(mg/dL) 1.20 1.20 ??SODIUM?(mmol/L) 139 139 ??POTASSIUM?(mmol/L) 5.0 5.0 ??CHLORIDE?(mmol/L) 100 100 ??CrCl?(CandG)?(ml/min) 44.17 ? ??AST/SGOT?(Unit/L) 10 16 ??ALT/SGPT?(Unit/L) <?7?L <?7?L ??ALKALINE?PHOSPHATASE?(Unit/L) 81 81 ??BILIRUBIN,?TOTAL?(mg/dL) 0.6 0.6 ??PROTEIN?TOTAL?(gm/dl) 7.5 8.5?H ??ALBUMIN,?SERUM?(gm/dl) 4.2 4.6 ??GLOBULIN?(gm/dl) 3.3 ? ??ALBUMIN/GLOBULIN?RATIO 1.3 ? ??CALCIUM,?SERUM?(mg/dL) 9.6 9.6 ??CALCIUM?SERUM?(CORRECTED)?(mg/dL) 9.6 ? ASSESSMENT/PLAN: Marisol Huerta, a male patient with a history of hypergammaglobulinemia, B12 deficiency, and severe pulmonary fibrosis, presents with persistent fatigue since 2017 and recent abdominal pain. 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 Previous workup did not reveal evidence of monoclonal gammopathy. Recent labs show normal hemoglobin, creatinine, eGFR, and calcium levels. 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 PET CT scan is negative - Refer to mastercam programmer Dr. Penny for management Severe Pulmonary Fibrosis Assessment: Patient has known severe pulmonary fibrosis. Currently using oxygen at night, set at 2 liters. Patient's has noticed improvement of energy levels with oxygen use. Last pulmonology follow-up was in [address] Rich. Plan: - Refer to resistor winder for evaluation and management B12 Deficiency Assessment: Patient has been receiving monthly B12 injections. Plan: - Continue B12 supplementation - Monitor for improvement in energy levels Gastrointestinal Issues Assessment: Recent endoscopic procedures revealed multiple findings. Colonoscopy showed hemorrhoids and mild diverticulosis, with no suspicious lesions noted. EGD on February 10, 2025, showed esophagitis. Plan: - Await full colonoscopy report from Dr. Palma, GI - Patient to schedule follow up with Dr. Palma ORDERS: Order # Description [id number] CBC + Comprehensive Metabolic Panel [id number] Lab Appointment [id number] Comprehensive Metabolic Panel - 12 + MD Follow Up 1 Year [id number] Serum Protein Electrophoresis + Serum Immunofixation Electrophoresis + Beta-2 Microglobulin + Quant Immunoglobulins + Free kappa and lambda light chains plus ratio, quantitative RETURN TO CLINIC: I reviewed the diagnosis, prognosis, and recommended treatment/procedure options with the patient (and/or their legal veterans employment representative), including the potential benefits, risks, side effects and alternative therapies. We also discussed the option of no treatment and the possibility of clinical trial participation, if applicable. All questions were addressed, and they demonstrated understanding. They provided informed consent to proceed with the proposed plan of care. BILLING AND COMPLIANCE: I reviewed external records from providers outside my specialty as summarized above. I spent a total of 50 minutes on this patient?s care on the day of their visit excluding time spent related to any billed procedures. This time includes time spent with the patient as well as time spent documenting in the medical record, reviewing patients records and tests, obtaining history, placing orders, communicating with other healthcare professionals, counseling the patient, family or caregiver, and/or care coordination for the diagnoses above. Electronically Signed by: Bong Andersen MD T: 1:47 AM CC: Brian?XENA Peralta PCP: Brian Peralta Referring: Brian Peralta This document was completed utilizing speech recognition software. Grammatical errors, random word insertions, pronoun errors, and incomplete sentences are an occasional consequence of this system due to software limitations, ambient noise, and hardware issues. Any formal questions or concerns about the content, text or information contained within the body of this dictation should be directly addressed to the provider for clarification.
== END 2025-07-07 23:59 | disposition home or self-care (01) ==
LOC: SCTC 09:29
PROVIDERS: PCP Family Medicine; Referring Provider Family Medicine; Visit Provider Internal Medicine Hematology & Oncology
DX: D61.818 Other pancytopenia (principal); J84.10 Pulmonary fibrosis, unspecified; J44.9 Chronic obstructive pulmonary disease, unspecified; J47.9 Bronchiectasis, uncomplicated; E53.8 Deficiency of other specified B group vitamins; D89.2 Hypergammaglobulinemia, unspecified; K64.9 Unspecified hemorrhoids; K57.90 Diverticulosis of intestine, part unspecified, without perforation or abscess without bleeding
CPT/HCPCS: 96372; 99212; J3420; G0463

== ENCOUNTER 2025-08-02 09:32 | Outpatient (RCR) | payer MEDICARE, SELFPAY | END 2025-08-06 23:59 | disposition home or self-care (01) | LOC: SCTC 09:32 | PROVIDERS: PCP Family Medicine; Referring Provider Family Medicine; Visit Provider Internal Medicine Hematology & Oncology | DX: E53.8 Deficiency of other specified B group vitamins (principal); D61.818 Other pancytopenia; D89.2 Hypergammaglobulinemia, unspecified; J84.10 Pulmonary fibrosis, unspecified; K64.9 Unspecified hemorrhoids; K57.90 Diverticulosis of intestine, part unspecified, without perforation or abscess without bleeding; K20.90 Esophagitis, unspecified without bleeding | CPT/HCPCS: 96372; J3420 ==

== ENCOUNTER 2025-08-29 09:34 | Outpatient (RCR) | payer MEDICARE, SELFPAY | END 2025-09-06 23:59 | disposition home or self-care (01) | LOC: SCTC 09:34 | PROVIDERS: PCP Family Medicine; Referring Provider Family Medicine; Visit Provider Internal Medicine Hematology & Oncology | DX: E53.8 Deficiency of other specified B group vitamins (principal); D61.818 Other pancytopenia; D89.2 Hypergammaglobulinemia, unspecified; J84.10 Pulmonary fibrosis, unspecified; K64.9 Unspecified hemorrhoids; K57.90 Diverticulosis of intestine, part unspecified, without perforation or abscess without bleeding | CPT/HCPCS: 96372; J3420 ==